=== PATIENT | female | born 1990 ===

== ENCOUNTER 2018-11-01 16:39 | Emergency (ER) | payer MEDICAID ==
[2018-11-01 17:11] VITALS: RESP 16; TEMP 98
--- NOTE | 2018-11-01 18:01 | C.PDOC ---
History Of Present Illness 27 y/o female pt with no known hx presents to the ER c/o pain and swelling in the mid axilla. Associated sx includes chills. Pt reports she took Aleve with minimal relief. Pt has no other complaints or associated sx. Time Seen by Provider: 11/01/18 17:17 Chief Complaint (Nursing): Abnormal Skin Integrity History Per: Patient History/Exam Limitations: no limitations Onset/Duration Of Symptoms: Days Current Symptoms Are (Timing): Still Present Past Medical History Reviewed: Historical Data, Nursing Documentation, Vital Signs Vital Signs: Last Vital Signs Temp 98 F 11/01/18 16:48 Pulse 90 11/01/18 16:48 Resp 16 11/01/18 16:48 BP 138/85 11/01/18 16:48 Pulse Ox 97 11/01/18 16:48 Family History: States: No Known Family Hx - Social History Hx Alcohol Use: No Hx Substance Use: No - Immunization History Hx Tetanus Toxoid Vaccination: No Hx Influenza Vaccination: No Hx Pneumococcal Vaccination: No Review Of Systems Except As Marked, All Systems Reviewed And Found Negative. Constitutional: Negative for: Fever, Chills Gastrointestinal: Negative for: Nausea, Vomiting Musculoskeletal: Positive for: Other (mid axilla pain and swelling ) Skin: Negative for: Rash Neurological: Negative for: Weakness, Numbness Physical Exam - Physical Exam Appears: Non-toxic, No Acute Distress Skin: Warm, Dry, No Rash Head: Normacephalic Eye(s): bilateral: Normal Inspection Oral Mucosa: Moist Throat: Normal, No Erythema, No Exudate Neck: Normal ROM, Supple Cardiovascular: Rhythm Regular Respiratory: Normal Breath Sounds, No Rales, No Rhonchi, No Wheezing Gastrointestinal/Abdominal: Soft, No Tenderness Extremity: Tenderness (left mid-axilla), Other (Pain and redness to left mid- axilla; Mid-axilla mild induration;no fluctuance; about 2x2 cm ) Neurological/Psych: Oriented x3, Normal Speech, Normal Cognition, Normal Motor, Normal Sensation ED Course And Treatment O2 Sat by Pulse Oximetry: 97 (RA) Pulse Ox Interpretation: Normal Medical Decision Making Medical Decision Making: Impression: early abscess sent home with keflex warm compress and pain control Pt told to come back for wound check on 11/04 Disposition - Disposition Referrals: [facility] at [facility] [Outside] [facility] at [facility] [Outside] [facility] at [place] [Outside] Disposition: HOME/ ROUTINE Disposition Time: 18:26 Condition: GOOD Additional Instructions: Apply warm compress three times a day and take Keflex, motrin as directed. Return in 48 hours for wound check Prescriptions: Cephalexin [cephalexin] 500 mg PO Q12 7 Days #14 cap Ibuprofen [Motrin] 600 mg PO Q6 #20 tab Instructions: Skin Abscess Forms: [id number] [employer] ([place]) - Clinical Impression Clinical Impression: Axillary abscess - Scribe Statement The provider has reviewed the documentation as recorded by the Cheyenne Nunez Do Provider Attestation: All medical record entries made by the [place] were at my direction and personally dictated by me. I have reviewed the chart and agree that the record accurately reflects my personal performance of the history, physical exam, medical decision making, and the department course for this patient. I have also personally directed, reviewed, and agree with the discharge instructions and disposition.
[2018-11-01 18:28] VITALS: BP 123/78; PULSE 81
[2018-11-02 15:25] VITALS: O2SAT 97
== END 2018-11-01 18:26 | disposition home or self-care (01) ==
LOC: C.ER 16:39
DX: L02.412 Cutaneous abscess of left axilla (principal)